=== PATIENT | male | born 1985 | race African-American/Black ===

== ENCOUNTER 2020-01-27 04:09 | Emergency (ER) | payer SELFPAY ==
[2020-01-27 07:18] LABS: ALBUMIN 4.7 g/dL (3.5-5.0); ALKALINE PHOSPHATASE 59 U/L (38-126); ANION GAP 9 (5-19); ASPARTATE AMINO TRANSFERASE 55 U/L (17-59); BILIRUBIN,DIRECT 0.1 mg/dL (0.0-0.4); BILIRUBIN,TOTAL 0.9 mg/dL (0.2-1.3); BLOOD UREA NITROGEN 19 mg/dL (7-20); CALCIUM 9.2 mg/dL (8.4-10.2); CARBON DIOXIDE 27 mmol/L (22-30); CHLORIDE 100 mmol/L (98-107); GLUCOSE 95 mg/dL (75-110); TOTAL PROTEIN 8.1 g/dL (6.3-8.2)
[2020-01-27 08:29] LABS: ABSOLUTE LYMPHOCYTES (AUTO) 1.3 10^3/uL (0.5-4.7); ABSOLUTE MONOCYTES (AUTO) 0.5 10^3/uL (0.1-1.4); ABSOLUTE NEUT (AUTO) 4.6 10^3/uL (1.7-8.2); BASOPHILS % (AUTO) 0.6 % (0-2); EOSINOPHILS % (AUTO) 0.2 % (0-6); HEMATOCRIT 43.1 % (37.9-51.0); HEMOGLOBIN 14.5 g/dL (13.5-17.0); LYMPHOCYTES % (AUTO) 19.8 % (13-45); MEAN CORPUSCULAR HEMOGLOBIN 27.5 pg (27.0-33.4); MEAN CORPUSCULAR HGB CONC 33.7 g/dL (32.0-36.0); MEAN CORPUSCULAR VOLUME 82 fl (80-97); MONOCYTES % (AUTO) 7.6 % (3-13); PLATELET COUNT 154 10^3/uL (150-450); RED BLOOD COUNT 5.28 10^6/uL (4.35-5.55); RED CELL DISTRIBUTION WIDTH 13.8 % (11.5-14.0); SEGMENTED NEUTROPHILS % (AUTO) 71.8 % (42-78); TOTAL CELLS COUNTED % (AUTO) 100 %; WHITE BLOOD COUNT 6.5 10^3/uL (4.0-10.5)
--- NOTE | 2020-01-27 08:51 | ER Document Report ---
ED General - General Chief Complaint: Psych Problem Stated Complaint: PSYCH EVALUATION Time Seen by Provider: 01/27/20 08:13 Notes: 34 y/o male presents with auditory hallucinations that have worsened since the 18th of this month when his sister . Patient states that he hallucinations are telling him to kill himself and are threatening him. Patient states he had auditory hallucinations in June of last year and he attempted to overdose on Tylenol. Patient also states he has been drinking heavily and quit recently. Patient states the last time he had the auditory hallucinations they are most likely due to his drinking alcohol and sleep deprivation. Patient states he started drinking again heavily around the time when his sister . Patient states his brother came by and he decided to quit drinking. Patient denies any nausea, tremors, or abdominal pain. Patient denies any SI or HI at this time. TRAVEL OUTSIDE OF THE [place] IN LAST 30 DAYS: No - Related Data Allergies/Adverse Reactions: No Known Allergies Allergy (Verified 01/27/20 07:00) Past Medical History - Social History Smoking Status: Never Smoker Family History: None Patient has suicidal ideation: Yes Patient has homicidal ideation: No Review of Systems - Review of Systems Notes: Constitutional: Negative for fever. HENT: Negative for sore throat. Eyes: Negative for visual changes. Cardiovascular: Negative for chest pain. Respiratory: Negative for shortness of breath. Gastrointestinal: Negative for abdominal pain, vomiting or diarrhea. Genitourinary: Negative for dysuria. Musculoskeletal: Negative for back pain. Skin: Negative for rash. Neurological: Negative for headaches, weakness or numbness. Psych: Positive for auditory hallucinations. Negative for SI/HI. 10 point ROS negative except as marked above and in HPI. Physical Exam - Vital signs Vitals: BP Pulse Ox 169/112 H 98 01/27/20 04:15 01/27/20 04:15 - Notes Notes: GENERAL: Well-appearing, well-nourished and in no acute distress. HEAD: Atraumatic, normocephalic. EYES: Extraocular movements intact, sclera anicteric, conjunctiva are normal. NECK: Normal range of motion, supple without lymphadenopathy or JVD. LUNGS: Breath sounds clear to auscultation bilaterally and equal. No wheezes rales or rhonchi. HEART: Regular rate and rhythm without murmurs, rubs or gallops. ABDOMEN: Soft, nontender. No guarding, no rebound. No masses appreciated. EXTREMITIES: Normal range of motion, no pitting or edema. No clubbing or cyanosis. NEUROLOGICAL: Cranial nerves II through XII grossly intact. Normal speech, normal gait. PSYCH: Normal mood, normal affect. SKIN: Warm, Dry, normal turgor, no rashes or lesions noted. Course - Re-evaluation Re-evalutation: 01/27/20 08:49 34 y/o male presents for auditory hallucinations that are telling him to harm himself and threatening him. Pt has a history of alcohol abuse. States last drink was on the 18. Pt denies any nausea/vomiting or abdominal pain. Pt nontoxic well appearing. Abd soft, nontender. Labwork initiated to medically clear pt for psych evaluation. 01/27/20 09:48 Pt medically cleared for psychiatric evaluation. - Vital Signs Vital signs: Temp Pulse Resp BP Pulse Ox 98.2 F 77 11 L 153/89 H 99 01/27/20 04:28 01/27/20 04:28 01/27/20 04:28 01/27/20 06:01 01/27/20 06:01 - Laboratory Result Diagrams: 01/27/20 08:08 01/27/20 05:36 Laboratory results interpreted by me: 01/27/20 01/27/20 01/27/20 05:36 05:36 09:12 Sodium 136.2 L Urine Ketones 80 H Salicylates < 1.0 L Acetaminophen < 10 L Discharge - Discharge Clinical Impression: Auditory hallucinations Condition: Stable Disposition: PSYCH HOSP/UNIT
[2020-01-27 08:54] LABS: ACETAMINOPHEN < 10 ug/mL (10-30); ALCOHOL < 10 mg/dL (NONE DETECTED); SALICYLATE < 1.0 mg/dL (2.0-20.0)
[2020-01-27 09:24] LABS: APPEARANCE,URINE SLIGHTLY-CLOUDY; BILIRUBIN,URINE NEGATIVE (NEGATIVE); COLOR,URINE YELLOW; GLUCOSE, URINE NEGATIVE (NEGATIVE); KETONES,URINE 80 mg/dL (NEGATIVE); LEUKOCYTE ESTERASE,URINE NEGATIVE (NEGATIVE); NITRITE,URINE NEGATIVE (NEGATIVE); PROTEIN,URINE NEGATIVE (NEGATIVE); URINE SPECIFIC GRAVITY 1.024; UROBILINOGEN,URINE NEGATIVE mg/dL (<2.0)
[2020-01-27 09:39] LABS: URINE AMPHETAMINES SCREEN NEGATIVE; URINE BARBITURATES SCREEN NEGATIVE; URINE BENZODIAZEPINES SCREEN NEGATIVE; URINE COCAINE SCREEN NEGATIVE; URINE MARIJUANA (THC) SCREEN NEGATIVE; URINE METHADONE SCREEN NEGATIVE; URINE PHENCYCLIDINE SCREEN NEGATIVE
[2020-01-27] MEDS ORDERED: BUSPIRONE HCL 10 MG TABLET PO SCH (12:15)
[2020-01-27] MEDS ORDERED: DIVALPROEX SODIUM 250 MG TABLET.DR PO SCH (13:00)
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
[2020-01-27 16:22] VITALS: BP 148/91
--- NOTE | 2020-01-27 17:27 | EKG REPORT ---
SEVERITY:- ABNORMAL ECG - SINUS RHYTHM PROBABLE LEFT VENTRICULAR HYPERTROPHY : Confirmed by: Nida Grimaldo MD 27-Jan-2020 17:26:40
== END 2020-01-27 16:22 | disposition home or self-care (01) ==
LOC: ER 04:09
DX: R44.0 Auditory hallucinations (principal); R45.851 Suicidal ideations; Z63.4 Disappearance and death of family member
CPT/HCPCS: 36415; 80053; 80307; 81001; 85025; 93005; 93010; 99285

== ENCOUNTER 2020-10-01 18:22 | Emergency (ER) | payer SELFPAY ==
--- NOTE | 2020-10-01 18:39 | ER Document Report ---
ED Medical Screen (RME) - General Chief Complaint: Psych Problem Stated Complaint: PSYCH EVAL Time Seen by Provider: 10/01/20 18:27 Mode of Arrival: Ambulatory Information source: Patient Notes: Patient presents with auditory and visual hallucinations. Patient states he hears voices that are telling him to harm himself. Patient states that he has been threatened by these hallucinations and he feels as though they have followed him from [place]. Patient states that they are advising him to overdose on his medications. Patient reports a history of anxiety depression and previous TBI. Patient states he has had episodes over the past year in which she has had auditory and visual hallucinations although states he was never diagnosed with anything. I have greeted and performed a rapid initial assessment of this patient. A comprehensive ED assessment and evaluation of the patient, analysis of test results and completion of the medical decision making process will be conducted by additional ED providers. TRAVEL OUTSIDE OF THE [place] IN LAST 30 DAYS: No - Related Data Allergies/Adverse Reactions: No Known Allergies Allergy (Verified 01/27/20 07:00) Physical Exam - Psychological Associated symptoms: Auditory hallucinations, Visual hallucinations
--- NOTE | 2020-10-01 18:55 | ER Document Report ---
ED General - General Chief Complaint: Psych Problem Stated Complaint: PSYCH EVAL Time Seen by Provider: 10/01/20 18:27 Mode of Arrival: Ambulatory TRAVEL OUTSIDE OF THE [place] IN LAST 30 DAYS: No - Related Data Allergies/Adverse Reactions: No Known Allergies Allergy (Verified 01/27/20 07:00) Past Medical History - General Information source: Patient - Social History Family History: None
[2020-10-01 20:07] LABS: ABSOLUTE LYMPHOCYTES (AUTO) 0.7 10^3/uL (0.5-4.7); ABSOLUTE MONOCYTES (AUTO) 0.3 10^3/uL (0.1-1.4); ABSOLUTE NEUT (AUTO) 3.5 10^3/uL (1.7-8.2); BASOPHILS % (AUTO) 0.2 % (0-2); EOSINOPHILS % (AUTO) 0.2 % (0-6); HEMATOCRIT 44.5 % (37.9-51.0); HEMOGLOBIN 14.9 g/dL (13.5-17.0); LYMPHOCYTES % (AUTO) 16.2 % (13-45); MEAN CORPUSCULAR HEMOGLOBIN 28.3 pg (27.0-33.4); MEAN CORPUSCULAR HGB CONC 33.6 g/dL (32.0-36.0); MEAN CORPUSCULAR VOLUME 84 fl (80-97); MONOCYTES % (AUTO) 7.2 % (3-13); PLATELET COUNT 137 10^3/uL (150-450); RED BLOOD COUNT 5.28 10^6/uL (4.35-5.55); RED CELL DISTRIBUTION WIDTH 13.1 % (11.5-14.0); SEGMENTED NEUTROPHILS % (AUTO) 76.2 % (42-78); TOTAL CELLS COUNTED % (AUTO) 100 %; WHITE BLOOD COUNT 4.6 10^3/uL (4.0-10.5)
--- NOTE | 2020-10-01 20:07 | ER Document Report ---
ED General - General Chief Complaint: Psych Problem Stated Complaint: PSYCH EVAL Time Seen by Provider: 10/01/20 18:27 Mode of Arrival: Ambulatory TRAVEL OUTSIDE OF THE [place] IN LAST 30 DAYS: No - HPI Notes: 35-year-old male presents to the emergency room today by private vehicle with his brother for auditory hallucinations that stated that he should kill somebody or kill himself. Patient denies acting on this, has denies having a plan. Patient states he has had issues with auditory hallucinations in the past. Denies having history of schizophrenia. Denies any plan. Denies any chest pain, shortness of breath, nausea vomiting diarrhea. Denies any headache blurred vision double vision loss of vision. Denies any fevers or chills. - Related Data Allergies/Adverse Reactions: No Known Allergies Allergy (Verified 10/01/20 19:44) Past Medical History - General Information source: Patient - Social History Smoking Status: Never Smoker Frequency of alcohol use: Heavy Drug Abuse: None Family History: None Review of Systems - Review of Systems Constitutional: No symptoms reported EENT: No symptoms reported Cardiovascular: No symptoms reported Respiratory: No symptoms reported Gastrointestinal: No symptoms reported Genitourinary: No symptoms reported Male Genitourinary: No symptoms reported Musculoskeletal: No symptoms reported Skin: No symptoms reported Hematologic/Lymphatic: No symptoms reported Neurological/Psychological: See HPI Physical Exam - Vital signs Vitals: Pulse Resp BP Pulse Ox 96 18 183/115 H 95 10/01/20 18:26 10/01/20 18:26 10/01/20 18:26 10/01/20 18:26 - Notes Notes: MEDICATIONS: I agree with the patient medications as charted by the RN. ALLERGIES: I agree with the allergies as charted by the RN. PAST MEDICAL HISTORY/PAST SURGICAL HISTORY: Reviewed and agree as charted by RN. SOCIAL HISTORY: Reviewed and agree as charted by RN. FAMILY HISTORY: No significant familial comorbid conditions directly related to patient complaint EXAM: Reviewed vital signs as charted by RN. PHYSICAL EXAMINATION:reviewed vital signs by RN GENERAL: Well-appearing, well-nourished and in no acute distress. HEAD: Atraumatic, normocephalic. EYES: Pupils equal round and reactive to light, extraocular movements intact, sclera anicteric, conjunctiva are normal. ENT: Nares patent, oropharynx clear without exudates. Moist mucous membranes. NECK: Normal range of motion, supple without lymphadenopathy LUNGS: Breath sounds clear to auscultation bilaterally and equal. No wheezes rales or rhonchi. HEART: Regular rate and rhythm without murmurs ABDOMEN: Soft, nontender, nondistended abdomen. No guarding, no rebound. No masses appreciated. Musculoskeletal: Normal range of motion, no pitting or edema. No cyanosis. NEUROLOGICAL: Cranial nerves grossly intact. Normal speech, normal gait. Normal sensory, motor exams PSYCH: Normal mood, normal affect. SKIN: Warm, Dry, normal turgor, no rashes or lesions noted. Course - Re-evaluation Re-evalutation: 10/01/20 20:26 Stable no distress. Nurses notes reviewed. Awaiting for labs obtained and resulted. Patient no distress. Vital signs are stable. Disposition given to Rob Jean PA at 2014 - Vital Signs Vital signs: Temp Pulse Resp BP Pulse Ox 98.3 F 81 19 168/110 H 99 10/01/20 19:33 10/01/20 19:33 10/01/20 19:33 10/01/20 19:33 10/01/20 19:33 - Laboratory Result Diagrams: 10/01/20 19:16 10/01/20 19:16 Laboratory results interpreted by me: 10/01/20 10/01/20 19:16 19:16 Plt Count 137 L Urine Protein 100 H Urine Ketones TRACE H Discharge - Discharge Clinical Impression: Auditory hallucination Condition: Stable Disposition: PSYCH HOSP/UNIT
[2020-10-01 20:16] LABS: APPEARANCE,URINE SLIGHTLY-CLOUDY; BILIRUBIN,URINE NEGATIVE (NEGATIVE); COLOR,URINE AMBER; GLUCOSE, URINE NEGATIVE (NEGATIVE); KETONES,URINE TRACE mg/dL (NEGATIVE); LEUKOCYTE ESTERASE,URINE NEGATIVE (NEGATIVE); NITRITE,URINE NEGATIVE (NEGATIVE); PROTEIN,URINE 100 mg/dL (NEGATIVE); URINE SPECIFIC GRAVITY 1.032; UROBILINOGEN,URINE NEGATIVE mg/dL (<2.0)
[2020-10-01 20:27] LABS: ALBUMIN 5.1 g/dL (3.5-5.0); ALKALINE PHOSPHATASE 57 U/L (38-126); ANION GAP 13 (5-19); ASPARTATE AMINO TRANSFERASE 51 U/L (17-59); BILIRUBIN,DIRECT 0.1 mg/dL (0.0-0.4); BLOOD UREA NITROGEN 17 mg/dL (7-20); CALCIUM 10.5 mg/dL (8.4-10.2); CARBON DIOXIDE 28 mmol/L (22-30); CHLORIDE 98 mmol/L (98-107); GLUCOSE 117 mg/dL (75-110); POTASSIUM 4.1 mmol/L (3.6-5.0); TOTAL PROTEIN 8.9 g/dL (6.3-8.2)
[2020-10-01 20:28] LABS: ACETAMINOPHEN < 10 ug/mL (10-30); ALCOHOL < 10 mg/dL (NONE DETECTED); SALICYLATE < 1.0 mg/dL (2.0-20.0)
[2020-10-01 20:32] LABS: URINE AMPHETAMINES SCREEN NEGATIVE; URINE BARBITURATES SCREEN NEGATIVE; URINE BENZODIAZEPINES SCREEN NEGATIVE; URINE COCAINE SCREEN NEGATIVE; URINE MARIJUANA (THC) SCREEN NEGATIVE; URINE METHADONE SCREEN NEGATIVE; URINE PHENCYCLIDINE SCREEN NEGATIVE
[2020-10-02] MEDS ORDERED: THIAMINE HCL 100 MG, FOLIC ACID 1 MG in NORMAL SALINE 250 ML IV ONE (01:51)
[2020-10-02] MEDS ORDERED: NORMAL SALINE 1000 ML 1,000 ML IV ONE (01:51)
[2020-10-02] MEDS ORDERED: CLONAZEPAM 1 MG TABLET PO ONE (01:52)
[2020-10-02] MEDS ORDERED: THIAMINE HCL INJ 200 MG/2 ML VIAL ONE (02:07)
[2020-10-02] MEDS ORDERED: FOLIC ACID INJ 5 MG/1 ML 10 ML VIAL ONE (02:08)
--- NOTE | 2020-10-02 07:05 | ER Document Report ---
ED General - General Chief Complaint: Psych Problem Stated Complaint: PSYCH EVAL Time Seen by Provider: 10/01/20 18:27 Primary Care Provider: [facility] [Outside] - Follow up in 3-5 days Mode of Arrival: Ambulatory Notes: 34-year-old male history of alcohol abuse, hypertension presents with hallucination just prior to arrival. Patient says that he has been drinking alcohol heavily daily for the past several months due to several stressors in his home life and soft abruptly 3 days ago. Says that just before presenting to the ED he had auditory hallucinations that were telling him to commit suicide. Because this was upsetting to him patient came to the emergency department a lthough he also was able to identify them as not being real and says that he did not want to follow through with her commands. Patient has had no other withdrawal symptoms. Patient has been told he had hypertension before but says he was never prescribed any medication for it. patient denies any tremors, seizure, headache, recent illness, fever, abdominal pain, paresthesias, trauma, psych history, chest pain, shortness of breath TRAVEL OUTSIDE OF THE [place] IN LAST 30 DAYS: No - Related Data Allergies/Adverse Reactions: No Known Allergies Allergy (Verified 10/01/20 19:44) Past Medical History - General Information source: Patient - Social History Smoking Status: Never Smoker Frequency of alcohol use: Heavy Drug Abuse: None Family History: None Review of Systems - Review of Systems Notes: REVIEW OF SYSTEMS: CONSTITUTIONAL : Denies fever, chills, or sweats. EENT: Denies recent cold/sinus symptoms, denies throat pain CARDIOVASCULAR: Denies chest pain, ASHLEY RESPIRATORY: Denies cough, denies shortness of breath. GASTROINTESTINAL: Denies abdominal pain, +nausea/vomiting. GENITOURINARY: Denies difficulty urinating, painful urination. MUSCULOSKELETAL: Denies neck pain, back pain. SKIN: Denies rash or skin lesions. HEMATOLOGIC : Denies easy bruising or bleeding. LYMPHATIC: Denies swollen, enlarged glands. NEUROLOGICAL: Denies headache, denies change in gait. PSYCHIATRIC: + anxiety or stress or depression. Physical Exam - Vital signs Vitals: Pulse Resp BP Pulse Ox 96 18 183/115 H 95 10/01/20 18:26 10/01/20 18:26 10/01/20 18:26 11/03/20 18:26 - Notes Notes: PHYSICAL EXAMINATION: GENERAL: Well-appearing, well-nourished and in no acute distress. HEAD: Atraumatic, normocephalic. EYES: Pupils equal round and appropriate constriction, sclera anicteric, conjunctiva are normal. ENT: nares patent, moist mucous membranes. NECK: Normal range of motion, supple without lymphadenopathy LUNGS: Breath sounds clear to auscultation bilaterally and equal. No wheezes rales or rhonchi. HEART: Regular rate and rhythm without murmurs ABDOMEN: Soft, nontender, no guarding, no masses, no CVAT EXTREMITIES: Normal range of motion, no pitting or edema. No cyanosis. NEUROLOGICAL: Awake, alert, conversing appropriately, moves all extremities spontaneously. No tremor with outstretched fingers. PSYCH: Normal mood, normal affect. Has insight into symptoms, does not appear to be responding to internal stimuli. No signs of seeking secondary gain. SKIN: Warm, Dry, normal turgor, no rashes or lesions noted. Course - Re-evaluation Re-evalutation: 10/02/20 07:03 Patient with command hallucinations possibly secondary to alcohol withdrawal but no other acute signs of alcohol withdrawal. Endorses having 2 episodes of nonbilious nonbloody emesis which resolved prior to arrival in the ED, and patient is hypertensive in the ED but also has history of hypertension which she has not been treating. Patient alert and oriented, no tremor, no psychomotor agitation, no headache, no anxiety. Patient given Klonopin and medically cleared pending psych evaluation for determination of likelihood of alcohol withdrawal hallucinations versus primary psychotic disorder. Patient remained stable in ED, turned over to JOURDAN Hart pending psych eval. - Vital Signs Vital signs: Temp Pulse Resp BP Pulse Ox 98.2 F 94 18 168/110 H 99 10/02/20 13:30 10/02/20 13:30 10/02/20 13:30 10/02/20 13:30 10/02/20 13:30 - Laboratory Result Diagrams: 10/01/20 19:16 10/01/20 19:16 Laboratory results interpreted by me: 10/01/20 10/01/20 10/01/20 19:16 19:16 19:16 Plt Count 137 L Glucose 117 H Calcium 10.5 H Total Protein 8.9 H Albumin 5.1 H Urine Protein 100 H Urine Ketones TRACE H Salicylates < 1.0 L Acetaminophen < 10 L - EKG Interpretation by Me Additional EKG results interpreted by me: 10/02/20 07:05 Sinus rhythm, no significant ST elevations or depressions, no significant T wave abnormalities, QTc 484 Discharge - Discharge Clinical Impression: Auditory hallucination, Alcohol abuse with withdrawal and perceptual disturbance Condition: Stable Disposition: HOME, SELF-CARE Additional Instructions: You have been evaluated by both medical and behavioral health teams for concerns of hallucinations. At this time, it appears these are directly connected to alcohol withdrawals. You have been deemed appropriate for discharge. While in the emergency department you received the following services/or had access to: Medical screening and assessment, nursing services, dietary services, pharmacological services, one-on-one counseling and/or psychotherapy, environmental services, and continuous observation by a patient environmental safety specialist. You should continue your home medications as prescribed and follow up with your medication provider. You highly encouraged to participate in substance abuse treatment and continue to attend AA meetings. You have been provided resources in the community for outpatient services and [facility] recovery programs. Some of these services i nclude free online meetings and virtual platforms, mobile crisis numbers, short term and immunohematologist detox facilities, and outpatient providers in the area. We have highlighted [facility] as they accept self pay patients and specialize in dual mental health and substance abuse. However, you are free to choose any provider. CHRONIC ALCOHOLISM and ALCOHOL ABUSE: Your evaluation reveals evidence of chronic alcoholism, an addiction to alcohol. The tendency to alcoholism may be inherited. Chronic use of alcohol weakens muscles, causes fatty deposits in the liver, damages the stomach, makes you more prone to infections, and can cause defects in unborn children. In the long run, brain atrophy and cirrhosis of the liver result. You are also at greater risk for certain types of cancer, such as cancer of the mouth, throat, stomach, and liver. Counselling services are available to help you. In-hospital treatment programs often help. Support groups such as Alcoholics Anonymous can be very useful in beating this addiction. Your physician can make a referral for you. As alcoholics often are prone to other addictions, you should discuss your use of any other medications with the doctor. ALCOHOL WITHDRAWAL: Your symptoms are caused by alcohol withdrawal. After a period of frequent drinking, the brain and body are changed by the alcohol. When you quit or reduce your drinking, the nervous system becomes unstable. Withdrawal symptoms can sta rt a few hours after your last drink, but sometimes don't begin until a couple of days later. Symptoms can include shakiness, sweating, insomnia, nausea, vomiting, fearfulness, hallucinations, and seizures. In addition to the acute effects of alcohol withdrawal, we often have to deal with the medical effects of alcoholism. These problems often include dehydration, stomach irritation, intestinal bleeding, low blood sugar, liver disease, and pancreas inflammation. Treatment for alcohol withdrawal includes mild sedatives, vitamins, and fluids. You need to be with someone who can help if symptoms become severe. Many patients can withdraw at home. Admission to the hospital or a detox facility may be necessary if withdrawal symptoms are severe and uncontrollable. Abstaining from alcohol is the only effective long-term treatment. If you start drinking again, you will not be able to control yourself after the first drink. Treatment programs are available. In addition, many alcoholics benefit from Alcoholics Anonymous or other support groups available through your counselor or presybeterian radio electronics officer. [employer] and [employer] are support groups for friends and family members of an alcoholic. Go to the emergency room if you develop persistent vomiting, severe abdominal pain, fever, shortness of breath, hallucinations, uncontrollable tremors, or seizures. FOLLOW-UP CARE: If you have been referred to a physician for follow-up care, call the physicians office for an appointment as you were instructed or within the next two days. If you experience worsening or a significant change in your symptoms, notify the physician immediately or return to the Emergency Department at any time for re-evaluation. Referrals: [facility] [Outside] - Follow up in 3-5 days
--- NOTE | 2020-10-02 09:40 | ER Document Report ---
Doctor's Note Notes: 10/02/20 13:12 Patient evaluated at this time. Mental health tells me he is clear for discharge from their standpoint. I have evaluated the patient. Patient feels comfortable being discharged home. Patient does report when he first came into the emergency department he was having some low back pain. He states that pain started about a week ago after doing some lifts in the gym. He actually reports the pain is much improved at this time after resting here in the ED. He denies any loss of control of bowel or bladder, urinary retention or saddle anesthesia. He has not had fever or chills. No red flag signs. Patient will be discharged home at this time.
[2020-10-02 13:53] VITALS: BP 168/110
--- NOTE | 2020-10-02 18:57 | EKG REPORT ---
SEVERITY:- BORDERLINE ECG - SINUS RHYTHM BORDERLINE PROLONGED QT INTERVAL : Confirmed by: Orlando Ott MD 02-Oct-2020 18:56:28
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
== END 2020-10-02 13:30 | disposition home or self-care (01) ==
LOC: ER 18:22
DX: F10.232 Alcohol dependence with withdrawal with perceptual disturbance (principal); F10.231 Alcohol dependence with withdrawal delirium; R44.0 Auditory hallucinations; R44.1 Visual hallucinations; I10 Essential (primary) hypertension; Z87.820 Personal history of traumatic brain injury
CPT/HCPCS: 93005; 99285; 96361; 96365; 36415; 80307 ×4; 85025; 80053; 81001; 93010; J3490; J3411; J7030; J7050